=== PATIENT | female | born 1970 | race Caucasian/White ===

== ENCOUNTER 2025-01-11 12:41 | Outpatient (CLI) | payer MEDICAID, SELFPAY ==
--- NOTE | 2025-01-11 12:47 | CT_ITS ---
WS: [id number] CT CHEST, ABDOMEN AND PELVIS WITH CONTRAST HISTORY: MALIGNANT NEOPLASM OF PERITONEUM/ABDOMINAL PAIN TECHNIQUE: Contiguous 5 mm axial imaging performed through the chest, abdomen and pelvis with IV contrast, oral contrast has been provided. Coronal and sagittal reformats chest. Coronal and sagittal reformats through the abdomen and pelvis. All CT scans at [facility] use at least one of these dose optimization techniques: automated exposure control; mA and/or kV adjustment per patient size (includes targeted exams where dose is matched to clinical indication); or iterative reconstruction. CONTRAST: Omnipaque 350; 100 mL IV. DLP: 982.71 mGy.cm COMPARISON: 06/24/2024, 04/07/[address]: There are a few scattered very tiny micronodules. These are unchanged since 12/08/2023. There is a new pleural-based 5 mm nodule in the posterior mid LEFT lung. No pneumonia or mass. Mild atherosclerosis aorta. Normal size pulmonary artery and heart. No mediastinal or hilar adenopathy. Bilateral breast implants. RIGHT subclavian Mediport. Abdomen CT: Normal liver. No metastatic disease or intrahepatic duct dilatation. Normal spleen. Small cyst with wall calcification involving the superior spleen. No interval change. The remaining spleen is unremarkable. Normal pancreas. No pancreatic duct dilatation. Normal adrenal glands. No renal obstruction or mass. Mild atherosclerosis aorta. No aneurysm. Mesenteric arteries are normally enhancing. Normal appearance of the stomach. No small bowel obstruction. Increased density throughout the small bowel. Small bowel loops appear mildly prominent this is predominantly involving the jejunum in the LEFT abdomen but does cross the midline. Featureless appearance to the jejunum but there is no obstructive pattern. Status post LEFT hemicolectomy. Reversal of the LEFT ostomy. Surgical anastomotic sutures near the rectosigmoid junction are identified. No obstruction. No recurrent mass. Pelvic CT: No free fluid or adenopathy. Prior hysterectomy. No adenopathy. CT/CT chest abdpel w/*[id number] IMPRESSION: 1. Status post LEFT hemicolectomy. 2. Reversal of the LEFT lower quadrant colostomy. Unremarkable appearance of t his surgical anastomosis at the rectosigmoid junction. 3. No ascites or adenopathy identified in the chest, abdomen or pelvis. 4. There is a new 5 mm pleural-based nodule in the posterior mid LEFT lung. Co nsider 3-month chest CT follow-up. 5. No metastatic lesions within the liver or adrenal glands.
[2025-01-11] MEDS: iohexol 350 mg/mL 500 mL Btl (per mL) PO (13:35)
[2025-01-11] MEDS: iohexol 350 mg/mL 500 mL Btl (per mL) IV (14:19)
== END 2025-01-11 12:42 | disposition home or self-care (01) ==
LOC: RAD 12:43
PROVIDERS: PCP Family Medicine; Visit Provider Nurse Practitioner Family
DX: R10.9 Unspecified abdominal pain (principal); C48.2 Malignant neoplasm of peritoneum, unspecified; Z98.890 Other specified postprocedural states; R91.1 Solitary pulmonary nodule; I70.0 Atherosclerosis of aorta; Z98.82 Breast implant status; Z96.89 Presence of other specified functional implants; D73.4 Cyst of spleen; R93.5 Abnormal findings on diagnostic imaging of other abdominal regions, including retroperitoneum
CPT/HCPCS: 71260; 74177

== ENCOUNTER 2025-01-11 13:45 | Oncology outpatient (recurring) (ONCR) | payer MEDICAID, SELFPAY | END 2025-02-06 23:59 | disposition home or self-care (01) | PROVIDERS: PCP Family Medicine; Visit Provider Family Medicine | DX: C48.2 Malignant neoplasm of peritoneum, unspecified (principal); Z45.2 Encounter for adjustment and management of vascular access device ==

== ENCOUNTER 2025-04-06 17:20 | Emergency (ER) | payer MEDICAID, SELFPAY ==
[2025-04-06] VITALS (7 sets, daily range): BP systolic 109–139; BP diastolic 56–85; PULSE 83–113; RESP 16–22; TEMP 36.4; O2SAT 94–99; BMI 29.0
--- NOTE | 2025-04-06 17:43 | CTR_ITS ---
PROCEDURE INFORMATION: Exam: CT Abdomen And Pelvis Without Contrast Exam date and time: 04/06/2025 6:38 PM Age: 54 years old Clinical indication: Abdominal pain; Generalized; Prior surgery; Surgery date: 6+ months; Surgery type: Tubal, hysterectomy, stomach and bowel for perf bowel, ostomy (reversed x6 mon) TECHNIQUE: Imaging protocol: Computed tomography of the abdomen and pelvis without contrast. Radiation optimization: All CT scans at this facility use at least one of these dose optimization techniques: automated exposure control; mA and/or kV adjustment per patient size (includes targeted exams where dose is matched to clinical indication); or iterative reconstruction. COMPARISON: CT chest abdpel w/*[id number] 01/11/2025 2:11 PM RADIATION DOSE METRICS: Total DLP (mGy-cm): 692.83 FINDINGS: Lungs: Minimal right posterior lower lobe atelectasis or scarring. Heart: Heart size is within normal limits. There is no pericardial effusion or pericardial thickening. Liver: The liver is normal. No hepatic masses are identified. Gallbladder and biliary ducts: The gallbladder is normal. There is no ductal dilatation. Pancreas: The pancreas is normal. Spleen: 13 mm low-density lesion with peripheral calcification in the anterior superior spleen, stable compared to prior imaging. The spleen is otherwise normal. Adrenal glands: The adrenal glands are normal. Kidneys and ureters: No renal calcifications are identified. There is no hydronephrosis. Stomach and bowel: Moderate retained colonic stool. Multiple postoperative changes of the bowel. Multiple dilated segments of small bowel in the left abdomen and pelvis with questionable transition point at anastomotic sutures in the left anterior midabdomen. Appendix: A normal appendix is not identified. There is no secondary evidence of acute appendicitis. Intraperitoneal space: No inflammatory changes are identified. There is no free fluid or fluid collection seen. There is no pneumoperitoneum. Vasculature: Atherosclerotic calcifications of the aorta are present. No aneurysm is identified. Lymph nodes: No enlarged lymph nodes are identified. Urinary bladder: The bladder is unremarkable. Reproductive: The uterus is not visualized. Bones/joints: No acute osseous abnormalities are seen. Soft tissues: Unremarkable. CT/CT abdomen pelvis wo con [id number] IMPRESSION: 1. At least partial small bowel obstruction with suggested transition point at anastomotic sutures in the left anterior midabdomen. 2. Other nonemergent findings above.
--- NOTE | 2025-04-06 17:49 | ED_ITS ---
Documented by User: Sandeep Camargo DO 04/07/25 06:30 HPI - Nausea/Vomiting/Diarrhea 2 General: Chief complaint: Nausea/Vomiting/Diarrhea Stated complaint: bowel problems, n,v, abd pain Time Seen by Provider: 04/06/25 17:43 History of Present Illness: 54-year-old female presents to the [facility] room complaining of nausea vomiting that began this morning. 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 Her last bowel movement was yesterday. She tried several laxatives today actually made things worse. She is in extreme discomfort at this time. Associated nausea: Yes Associated symtoms: Reports nausea; Denies chest pain or dysuria Related Data Allergies Allergy/AdvReac Type Severity Reaction Status Date / Time Sulfa (Sulfonamide Allergy ALGY-Anaphy Verified 04/06/25 17:36 Antibiotics) laxis Review of Systems 2 Const: Denies: fever(s) or chills Card: Denies: chest pain Resp: Denies: dyspnea GI: Reports: abdominal pain, nausea and vomiting : Denies: dysuria, urinary frequency or urinary urgency Musc: Denies: neck pain or back pain Skin/Breast: Denies: rash Physical Exam 2 Const: GENERAL APPEARANCE: cooperative ORIENTATION/CONSCIOUSNESS: Yes awake, Yes oriented to person, Yes oriented to place and Yes oriented to time HENMT: COMMON NORMALS: normocephalic, atraumatic and hearing grossly normal bilaterally HEAD & SCALP: normocephalic and atraumatic Resp: COMMON NORMALS: normal respiratory effort, No retractions, No use of accessory muscles and clear to auscultation bilaterally AUSCULTATION: clear to auscultation bilaterally Cardio: COMMON NORMALS: regular rate, regular rhythm and No murmurs present (Cardio) RATE: regular rate RHYTHM: regular rhythm GI: INSPECTION: Yes abdominal distension AUSCULTATION: Yes Absent bowel sounds PALPATION: Yes Tenderness to palpation present (GI), Yes Guarding due to palpation present (GI) and Yes Rigid due to palpation PERCUSSION: tympanic to percussion Extremity: COMMON NORMALS: normal to inspection, capillary refill normal, no clubbing, cyanosis or edema, no calf tenderness and no pedal edema Neuro: SENSORIUM/ORIENTATION: Yes oriented to person, Yes oriented to place and Yes oriented to time Skin: COMMON NORMALS: no rashes or lesions noted GENERAL SKIN EXAM: no rashes or lesions noted Course 2 Vital Signs: Vital signs: Vital Signs Temperature 97.5 F L 04/06/25 17:34 Pulse Rate 86 04/06/25 21:50 Respiratory Rate 18 04/06/25 21:50 Blood Pressure 139/79 04/06/25 21:50 Pulse Oximetry 99 04/06/25 21:50 Oxygen Delivery Me thod Room Air 04/06/25 21:00 MDM - Nausea/Vomiting/Diarrhea Medical Decision Making Care signed out to Dr. Gamboa at change of shift. See final notes for diagnosis and disposition. 2124: Patient signed out to me, Dr. Gamboa, by prior emergency physician pending CT scan and labs. Patient presents with what sounds like bowel obstruction with frequent vomiting soon after eating or drinking anything throughout the day today. After receiving some pain medicine and IV fluids, pain is much better. She has been with a passed flatus and stool while in the emergency department and had a trial of drinking water which did not induce vomiting or increased belly pain. I am cautiously optimistic that she was suffering from a partial bowel obstruction which has now resolved. She would like to go home and I think this is reasonable. We discussed return precautions at length and she shows good understanding knowing that many people require IV fluids in several days before their bowels completely wake up. Lab Data 04/06/25 17:57 04/06/25 17:57 Radiology Impressions Abdomen/Pelvis CT 04/06/25 17:43 IMPRESSION: 1. At least partial small bowel obstruction with suggested transition point at anastomotic sutures in the left anterior midabdomen. 2. Other nonemergent findings above. ADDENDUM: 04/06/258 ADDENDUM: THIS REPORT CONTAINS FINDINGS THAT MAY BE CRITICAL TO PATIENT CARE. The findings were verbally communicated via telephone conference with Dr. Gamboa at 7:06 PM CDT on 04/06/2025. The findings were acknowledged and understood. Laboratory Results WBC 11.72 10^3/uL (3.29-11.43) H 04/06/25 17:57 RBC 5.31 10^6/uL (3.85-5.65) 04/06/25 17:57 Hgb 15.20 g/dL (11.27-16.99) 04/06/25 17:57 Hct 46.1 % (36-47) 04/06/25 17:57 MCV 86.8 fl (85-98) 04/06/25 17:57 MCH 28.6 pg (27-33) 04/06/25 17:57 MCHC 33.0 g/dL (30-55) 04/06/25 17:57 RDW 15.3 % (12.1-15.1) H 04/06/25 17:57 Plt Count 158 10^3/cmm (157-399) 04/06/25 17:57 MPV 9.0 fL (7.4-10.4) 04/06/25 17:57 Neut % (Auto) 79.5 % 04/06/25 17:57 Lymph % (Auto) 14.2 % 04/06/25 17:57 [place] % (Auto) 5.5 % 04/06/25 17:57 Eos % (Auto) 0.2 % 04/06/25 17:57 Baso % (Auto) 0.2 % 04/06/25 17:57 Neut # (Auto) 9.31 10^3/uL (1.8-7.7) H 04/06/25 17:57 Lymph # (Auto) 1.7 10^3/uL (0.8-4.8) 04/06/25 17:57 [place] # (Auto) 0.7 10^3/uL (0.2-0.9) 04/06/25 17:57 Eos # (Auto) 0.0 10^3/uL (0.0-0.8) 04/06/25 17:57 Baso # (Auto) 0.0 10^3/uL (0.0-0.1) 04/06/25 17:57 Nucleated RBC % (auto) 0 % 04/06/25 17:57 Nucleated RBCs # 0.0 /100WBC 04/06/25 17:57 Sodium 139 mmol/L (136-145) 04/06/25 17:57 Potassium 4.0 mmol/L (3.5-5.1) 04/06/25 17:57 Chloride 102 mmol/L (98-107) 04/06/25 17:57 Carbon Dioxide 18 mmol/L (22-29) L 04/06/25 17:57 Anion Gap 23.0 (5-19) H 04/06/25 17:57 BUN 13 mg/dL (6-20) 04/06/25 17:57 Creatinine 0.6 mg/dL (0.5-0.9) 04/06/25 17:57 GFR Calculation 103.8 mL/min (90-130) 04/06/25 17:57 Glucose 130 mg/dL (65-115) H 04/06/25 17:57 Calculated Osmolality 290 mOsm/kg (285-295) 04/06/25 17:57 Lactic Acid 1.7 mmol/L (0.5-2.2) 04/06/25 17:57 Calcium 10.0 mg/dL (8.5-10.5) 04/06/25 17:57 Total Bilirubin 0.5 mg/dL (0.15-1.2) 04/06/25 17:57 AST 13 U/L (0-32) 04/06/25 17:57 ALT 11 U/L (0-33) 04/06/25 17:57 Alkaline Phosphatase 103 U/L (35-105) 04/06/25 17:57 Total Protein 7.9 g/dL (6.6-8.7) 04/06/25 17:57 Albumin 4.4 g/dL (3.5-5.2) 04/06/25 17:57 Globulin 3.5 g/dL (1.3-4.6) 04/06/25 17:57 Lipase 15 U/L (13-60) 04/06/25 17:57 Urine Color Yellow (Yellow) 04/06/25 19:40 Urine Appearance Clear (CLEAR) 04/06/25 19:40 Urine pH 6.5 (5-7) 04/06/25 19:40 Ur Specific [place] 1.021 (1.005-1.030) 04/06/25 19:40 Urine Protein Trace (Negative) A 04/06/25 19:40 Urine Glucose (UA) Negative (Normal) 04/06/25 19:40 Urine Ketones 3+ (Negative) H 04/06/25 19:40 Urine Blood Negative (Negative) 04/06/25 19:40 Urine Nitrate Negative (Negative) 04/06/25 19:40 Urine Bilirubin Negative (Negative) 04/06/25 19:40 Urine Urobilinogen 1.0 mg/dL (Negative) 04/06/25 19:40 Ur Leukocyte Esterase Negative (Negative) 04/06/25 19:40 Urine RBC 3-5 /hpf (0-2) 04/06/25 19:40 Urine WBC 0-5 /hpf (0-5) 04/06/25 19:40 Ur Squamous Epith Cells 0-5 /hpf (0-5) 04/06/25 19:40 Amorphous Sediment Not Reportable 04/06/25 19:40 Urine Bacteria None seen /hpf (NONE) 04/06/25 19:40 Hyaline Casts 1.21 /lpf 04/06/25 19:40 Discharge Plan Discharge Patient Disposition: Home Clinical Impression: Partial bowel obstruction Condition: Stable Discharge Orders: Discharge ED (Routine); Ordered 04/06/25 Ordered By: Aries Gamboa Referrals: Marcello Yarbrough MD [Primary Care Provider, [facility]] Discharge Diet: Advance as tolerated Discharge Activity: Increase activity as tolerated Patient Instructions: Bowel Obstruction (ED) Activity Restrictions/Additional Instructions: As we discussed, it appears you have suffered a partial small bowel obstruction today. There is no necrosis of the tissue with normal lactic acid level. Your CT scan shows some dilated loops of bowel, but you are now able to pass gas and tolerate drinking without vomiting or increase in pain. This typically means that the bowel obstruction is improving. Please very gently advance your diet from liquids to solids and know that you are always welcome back in the emergency department if symptoms get worse and not better. Many times people require several days of IV fluids and bowel rest for this to pass spontaneously. Print Language: Beninese Coding Level of Care Code ED School Plant Consultant for [employer]g Fwd Documented by User: Aries Gamboa MD 04/06/25 21:30 HPI - Nausea/Vomiting/Diarrhea 2 General: Chief complaint: Nausea/Vomiting/Diarrhea Stated complaint: bowel problems, n,v, abd pain Time Seen by Provider: 04/06/25 17:43 Related Data Allergies Allergy/AdvReac Type Severity Reaction Status Date / Time Sulfa (Sulfonamide Allergy ALGY-Anaphy Verified 04/06/25 17:36 Antibiotics) laxis Course 2 Vital Signs: Vital signs: Vital Signs Temperature 97.5 F L 04/06/25 17:34 Pulse Rate 86 04/06/25 21:50 Respiratory Rate 18 04/06/25 21:50 Blood Pressure 139/79 04/06/25 21:50 Pulse Oximetry 99 04/06/25 21:50 Oxygen Delivery Me thod Room Air 04/06/25 21:00 MDM - Nausea/Vomiting/Diarrhea Medical Decision Making 2124: Patient signed out to me, Dr. Gamboa, by prior emergency physician pending CT scan and labs. Patient presents with what sounds like bowel obstruction with frequent vomiting soon after eating or drinking anything throughout the day today. After receiving some pain medicine and IV fluids, pain is much better. She has been with a passed flatus and stool while in the emergency department and had a trial of drinking water which did not induce vomiting or increased belly pain. I am cautiously optimistic that she was suffering from a partial bowel obstruction which has now resolved. She would like to go home and I think this is reasonable. We discussed return precautions at length and she shows good understanding knowing that many people require IV fluids in several days before their bowels completely wake up. Lab Data 04/06/25 17:57 04/06/25 17:57 Radiology Impressions Abdomen/Pelvis CT 04/06/25 17:43 IMPRESSION: 1. At least partial small bowel obstruction with suggested transition point at anastomotic sutures in the left anterior midabdomen. 2. Other nonemergent findings above. ADDENDUM: 04/06/25 1908 ADDENDUM: THIS REPORT CONTAINS FINDINGS THAT MAY BE CRITICAL TO PATIENT CARE. The findings were verbally communicated via telephone conference with Dr. Gamboa at 7:06 PM CDT on 04/06/2025. The findings were acknowledged and understood. Laboratory Results WBC 11.72 10^3/uL (3.29-11.43) H 04/06/25 17:57 RBC 5.31 10^6/uL (3.85-5.65) 04/06/25 17:57 Hgb 15.20 g/dL (11.27-16.99) 04/06/25 17:57 Hct 46.1 % (36-47) 04/06/25 17:57 MCV 86.8 fl (85-98) 04/06/25 17:57 MCH 28.6 pg (27-33) 04/06/25 17:57 MCHC 33.0 g/dL (30-55) 04/06/25 17:57 RDW 15.3 % (12.1-15.1) H 04/06/25 17:57 Plt Count 158 10^3/cmm (157-399) 04/06/25 17:57 MPV 9.0 fL (7.4-10.4) 04/06/25 17:57 Neut % (Auto) 79.5 % 04/06/25 17:57 Lymph % (Auto) 14.2 % 04/06/25 17:57 [place] % (Auto) 5.5 % 04/06/25 17:57 Eos % (Auto) 0.2 % 04/06/25 17:57 Baso % (Auto) 0.2 % 04/06/25 17:57 Neut # (Auto) 9.31 10^3/uL (1.8-7.7) H 04/06/25 17:57 Lymph # (Auto) 1.7 10^3/uL (0.8-4.8) 04/06/25 17:57 [place] # (Auto) 0.7 10^3/uL (0.2-0.9) 04/06/25 17:57 Eos # (Auto) 0.0 10^3/uL (0.0-0.8) 04/06/25 17:57 Baso # (Auto) 0.0 10^3/uL (0.0-0.1) 04/06/25 17:57 Nucleated RBC % (auto) 0 % 04/06/25 17:57 Nucleated RBCs # 0.0 /100WBC 04/06/25 17:57 Sodium 139 mmol/L (136-145) 04/06/25 17:57 Potassium 4.0 mmol/L (3.5-5.1) 04/06/25 17:57 Chloride 102 mmol/L (98-107) 04/06/25 17:57 Carbon Dioxide 18 mmol/L (22-29) L 04/06/25 17:57 Anion Gap 23.0 (5-19) H 04/06/25 17:57 BUN 13 mg/dL (6-20) 04/06/25 17:57 Creatinine 0.6 mg/dL (0.5-0.9) 04/06/25 17:57 GFR Calculation 103.8 mL/min (90-130) 04/06/25 17:57 Glucose 130 mg/dL (65-115) H 04/06/25 17:57 Calculated Osmolality 290 mOsm/kg (285-295) 04/06/25 17:57 Lactic Acid 1.7 mmol/L (0.5-2.2) 04/06/25 17:57 Calcium 10.0 mg/dL (8.5-10.5) 04/06/25 17:57 Total Bilirubin 0.5 mg/dL (0.15-1.2) 04/06/25 17:57 AST 13 U/L (0-32) 04/06/25 17:57 ALT 11 U/L (0-33) 04/06/25 17:57 Alkaline Phosphatase 103 U/L (35-105) 04/06/25 17:57 Total Protein 7.9 g/dL (6.6-8.7) 04/06/25 17:57 Albumin 4.4 g/dL (3.5-5.2) 04/06/25 17:57 Globulin 3.5 g/dL (1.3-4.6) 04/06/25 17:57 Lipase 15 U/L (13-60) 04/06/25 17:57 Urine Color Yellow (Yellow) 04/06/25 19:40 Urine Appearance Clear (CLEAR) 04/06/25 19:40 Urine pH 6.5 (5-7) 04/06/25 19:40 Ur Specific [place] 1.021 (1.005-1.030) 04/06/25 19:40 Urine Protein Trace (Negative) A 04/06/25 19:40 Urine Glucose (UA) Negative (Normal) 04/06/25 19:40 Urine Ketones 3+ (Negative) H 04/06/25 19:40 Urine Blood Negative (Negative) 04/06/25 19:40 Urine Nitrate Negative (Negative) 04/06/25 19:40 Urine Bilirubin Negative (Negative) 04/06/25 19:40 Urine Urobilinogen 1.0 mg/dL (Negative) 04/06/25 19:40 Ur Leukocyte Esterase Negative (Negative) 04/06/25 19:40 Urine RBC 3-5 /hpf (0-2) 04/06/25 19:40 Urine WBC 0-5 /hpf (0-5) 04/06/25 19:40 Ur Squamous Epith Cells 0-5 /hpf (0-5) 04/06/25 19:40 Amorphous Sediment Not Reportable 04/06/25 19:40 Urine Bacteria None seen /hpf (NONE) 04/06/25 19:40 Hyaline Casts 1.21 /lpf 04/06/25 19:40 All radiology interpretation(s) finalized by discharge EKG Data EKG 1: Interpretation: Time?1814?normal sinus rhythm, rate of 81, no ST segment elevation or depression, no T wave inversions, intervals within normal limits. QTc = 419 Discharge Plan Discharge Patient Disposition: Home Clinical Impression: Partial bowel obstruction Condition: Stable Discharge Orders: Discharge ED (Routine); Ordered 04/06/25 Ordered By: Aries Gamboa Referrals: Marcello Yarbrough MD [Primary Care Provider, [facility]] Discharge Diet: Advance as tolerated Discharge Activity: Increase activity as tolerated Patient Instructions: Bowel Obstruction (ED) Activity Restrictions/Additional Instructions: As we discussed, it appears you have suffered a partial small bowel obstruction today. There is no necrosis of the tissue with normal lactic acid level. Your CT scan shows some dilated loops of bowel, but you are now able to pass gas and tolerate drinking without vomiting or increase in pain. This typically means that the bowel obstruction is improving. Please very gently advance your diet from liquids to solids and know that you are always welcome back in the emergency department if symptoms get worse and not better. Many times people require several days of IV fluids and bowel rest for this to pass spontaneously. Print Language: Beninese Coding Level of Care Code ED School Plant Consultant for Raúl Levy
[2025-04-06 18:13] LABS: Basophils % 0.2 %; Eosinophils % 0.2 %; Hematocrit 46.1 % (36-47); Lymphocytes # 1.7 10^3/uL (0.8-4.8); Lymphocytes % 14.2 %; Mean Corpuscular Hemoglobin 28.6 pg (27-33); Mean Corpuscular Volume 86.8 fl (85-98); Monocytes # 0.7 10^3/uL (0.2-0.9); Monocytes % 5.5 %; Neutrophils # 9.31 10^3/uL (1.8-7.7); Neutrophils % 79.5 %; Nucleated Red Blood Cells % 0 %; Platelet Count 158 10^3/cmm (157-399); Red Blood Count 5.31 10^6/uL (3.85-5.65); Red Cell Distribution Width 15.3 % (12.1-15.1); White Blood Count 11.72 10^3/uL (3.29-11.43)
[2025-04-06] MEDS: morphine 4 mg/mL SDV 1 mL IVP (18:13)
[2025-04-06] MEDS: ondansetron 2 mg/ML SDV 2 mL 4 MG IVP (18:14)
[2025-04-06] MEDS: sodium chloride 0.9% 1,000 ML 999 ML IV (18:14)
--- NOTE | 2025-04-06 18:15 | ECG_ITS ---
[facility] Test Date: 2025-04-06 Pat Name: Rosa Kidd Department: Room: Gender: Female Lab Clerk: : 1970 Requested By: Sandeep Flores Order Number: [id number] Cassi MD: Adonis Crandall M.D. Measurements Intervals Hawkins Rate: 81 P: 49 DC: 164 QRS: 66 QRSD: 92 T: 66 QT: 381 QTc: 445 Interpretive Statements SINUS RHYTHM No previous ECG available for comparison Electronically Signed On 04-11-2025 11:49:04 CDT by Adonis Crandall M.D. [id number]
[2025-04-06 18:33] LABS: Alanine Aminotransferase 11 U/L (0-33); Albumin Level 4.4 g/dL (3.5-5.2); Alkaline Phosphatase 103 U/L (35-105); Aspartate Amino Transferase 13 U/L (0-32); Blood Urea Nitrogen 13 mg/dL (6-20); Carbon Dioxide 18 mmol/L (22-29); Chloride 102 mmol/L (98-107); Creatinine Clr Calc Pharmacy 117.9515; Globulin 3.5 g/dL (1.3-4.6); Glomerular Filtration Rate 103.8 mL/min (90-130); Glucose 130 mg/dL (65-115); Lipase 15 U/L (13-60); Osmolality Calculated 290 mOsm/kg (285-295); Sodium 139 mmol/L (136-145); Total Bilirubin 0.5 mg/dL (0.15-1.2); Total Protein 7.9 g/dL (6.6-8.7)
[2025-04-06 18:34] LABS: Lactic Sepsis W/Reflex 1.7 mmol/L (0.5-2.2)
[2025-04-06 19:52] LABS: Bilirubin Urine Negative (Negative); Blood Urine Negative (Negative); Glucose Urine UA Negative (Normal); Ketones Urine 3+ (Negative); Leukocyte Esterase Urine Negative (Negative); Nitrate Urine Negative (Negative); Protein Urine Trace (Negative); Specific Gravity, Urine 1.021 (1.005-1.030); Urine Appearance Clear (CLEAR); Urine Color Yellow (Yellow); pH Urine 6.5 (5-7)
[2025-04-06 19:57] LABS: Add Urine Microscopic? YES; Bacteria Urine None Seen /hpf; Hyaline Casts Urine 1.21 /lpf; Squamous Epithelial Cell Urine 0-5 /hpf (0-5); WBC Urine 0-5 /hpf (0-5)
== END 2025-04-06 21:50 | disposition home or self-care (01) ==
PROVIDERS: Family Medicine; Emergency Provider Student in an Organized Health Care Education/Training Program; PCP Family Medicine
DX: K56.600 Partial intestinal obstruction, unspecified as to cause (principal)
CPT/HCPCS: 36415; 74176; 80053; 81001; 83605; 83690; 85025; 87040; 93005; 96374; 96375; 99285; J1642; J2270; J2405; J7030